=== PATIENT | female | born 2000 | race Caucasian/White ===

== ENCOUNTER 2021-03-23 15:15 | Emergency (ER) | payer BC, MEDICAID ==
[2021-03-23] MEDS ORDERED: Ketorolac 30 MG/ML SDV IVPUSH ONE (15:23)
[2021-03-23] MEDS ORDERED: Ondansetron 4 MG/2 ML SDV IVPUSH ONE (15:23)
[2021-03-23] MEDS ORDERED: Sodium Chloride 0.9% 1,000 ML IV ONE (15:34)
--- NOTE | 2021-03-23 15:40 | EDM.PDOC ---
ED HPI GENERAL MEDICAL PROBLEM - General Chief Complaint: Flank Pain Stated Complaint: right back/flank pain Time Seen by Provider: 03/23/21 15:25 Source of Information: Reports: Patient History Limitations: Reports: No Limitations - History of Present Illness INITIAL COMMENTS - FREE TEXT/NARRATIVE: Patient presents to the ED with her father for three days history of lower back pain, dysuria, nausea and lack of appetite. She states it started off with left lower back pain and dysuria with nausea and loss of appetite. It has progressed to right lower back pain, loss of appetite, dizziness, feeling unwell and one episode of vomiting of stomach secretions today. no fevers, works at the [employer], no known sick contacts. Did have diarrhea a few days ago and no stools s lizett then. Denies any vaginal discharge, taking azotabs for the urine and this is helping. has not taken anything for pain. LMP ended last week, denies any concern for . Non smoker, drinks occasional but not recently. No drug use. No tick bites or bug bites. Not have covid, no vaccines. she states she has had problems concentrating in the last day or so but is not eating or drinking. Still able to function and go to work, no deficits. Onset Date: 03/20/21 Duration: Constant, Getting Worse Location: Reports: Abdomen, Back Severity: Moderate Improves with: Reports: None Worsens with: Reports: Movement Associated Symptoms: Reports: Confusion, Loss of Appetite, Malaise, Nausea/Vomiting, Weakness Treatments TRANSPORTATION ANALYST: Reports: Other (see below) (azo tabs) Right Lower Flank Pain Score (Numeric/FACES): 6 - Related Data Allergies Allergy/AdvReac Type Severity Reaction Status Date / Time No Known Drug Allergies Allergy Other Verified 03/23/21 15:19 Home Meds: Home Meds Nitrofurantoin Monohyd/M-Cryst [Macrobid 100 mg Capsule] 100 mg PO BID 4 Days #8 capsule 03/23/21 [Rx] Ondansetron [Zofran ODT] 4 mg PO Q6H PRN #12 tab.dis 03/23/21 [Rx] Past Medical History Gastrointestinal History: Reports: Chronic Constipation Social & Family History - Family History Family Medical History: No Pertinent Family History - Tobacco Use Tobacco Use Status *Q: Never Tobacco User - Caffeine Use Caffeine Use: Reports: Soda - Alcohol Use Alcohol Use History: Yes Alcohol Use Frequency: Rarely - Recreational Drug Use Recreational Drug Use: No Drug Use in Last 12 Months: No ED ROS GENERAL - Review of Systems Review Of Systems: See Below Constitutional: Reports: Malaise, Weakness, Fatigue. Denies: Fever HEENT: Reports: No Symptoms. Denies: Rhinitis, Sinus Problem, Throat Pain, Throat Swelling Respiratory: Reports: No Symptoms. Denies: Shortness of Breath, Wheezing, Cough Cardiovascular: Reports: No Symptoms. Denies: Chest Pain, Dyspnea on Exertion, Edema Endocrine: Reports: No Symptoms GI/Abdominal: Reports: Abdominal Pain, Anorexia, Diarrhea (several days ago, none in two days), Decreased Appetite, Nausea, Vomiting (once today) : Reports: Dysuria, Flank Pain, Urgency. Denies: Hematuria, Urinary Retention Musculoskeletal: Reports: Back Pain Skin: Reports: No Symptoms Neurological: Reports: Confusion Psychiatric: Reports: No Symptoms Hematologic/Lymphatic: Reports: No Symptoms Immunologic: Reports: No Symptoms ED EXAM, GI/ABD - Physical Exam Exam: See Below Exam Limited By: No Limitations General Appearance: Alert, WD/WN, No Apparent Distress Eyes: Bilateral: Normal Appearance Ears: Normal External Exam, Normal Canal, Hearing Grossly Normal, Normal TMs Nose: Normal Inspection, Normal Mucosa, No Blood Throat/Mouth: Normal Inspection, Normal Lips, Normal Teeth, Normal Gums, Normal Voice Head: Atraumatic Neck: Normal Inspection, Supple, Non-Tender Respiratory/Chest: No Respiratory Distress, Lungs Clear, Normal Breath Sounds, No Accessory Muscle Use, Chest Non-Tender Cardiovascular: Normal Peripheral Pulses, Regular Rate, Rhythm, No Edema, No Murmur GI/Abdominal Exam: Soft, No Organomegaly, Tender (right lower quadrant), Abnormal Bowel Sounds (decreased). No: Rigid, Rebound Back Exam: Normal Inspection, Full Range of Motion, Other (no cva tenderness. No pain to palpation. no lesions or rashes, able to turn over in bed without problems. ) Extremities: Normal Inspection, Normal Range of Motion, No Pedal Edema, Normal Capillary Refill Neurological: Alert, Oriented, CN II-XII Intact, Normal Cognition, Normal Gait Psychiatric: Normal Affect Skin Exam: Warm, Dry, Other (skin is not tenting) Lymphatic: No Adenopathy Course - Vital Signs Last Recorded V/S: Last Vital Signs Temp 36.7 C 03/23/21 16:20 Pulse 67 03/23/21 16:20 Resp 16 03/23/21 16:20 BP 108/62 03/23/21 16:20 Pulse Ox 100 03/23/21 16:20 - Orders/Labs/Meds Orders: Active Orders 24 hr Category Date Time Status Peripheral IV Care [RC] . DIRECTED Care 03/23/21 15:23 Ordered Abdomen Pelvis wo Cont [CT] Stat Exams 03/23/21 16:21 Ordered CULTURE URINE [RM] Stat Lab 03/23/21 16:05 Received Sodium Chloride 0.9% [Saline Flush] Med 03/23/21 15:23 Ordered 10 ml FLUSH ASDIRECTED PRN cefTRIAXone [Rocephin] 1 gm Med 03/23/21 16:32 Ordered Sodium Chloride 0.9% [Normal Saline] 100 ml IV ONETIME Peripheral IV Insertion Adult [OM.PC] Routine Oth 03/23/21 15:23 Ordered Medication Orders Ceftriaxone Sodium 1 gm/ (Sodium Chloride) 100 mls @ 200 mls/hr IV ONETIME ONE Stop: 03/23/21 17:01 Sodium Chloride (Sodium Chloride 0.9% 10 Ml Syringe) 10 ml FLUSH ASDIRECTED PRN PRN Reason: Keep Vein Open Last Admin: 03/23/21 15:53 Dose: 10 ml Documented by: Admin: 03/23/21 15:52 Dose: 10 ml Documented by: JOSS Labs: Laboratory Tests 03/23/21 03/23/21 03/23/21 Range/Units 15:23 15:34 15:34 WBC 8.1 (4.0-10.2) K/uL RBC 4.70 (3.77-5.09) M/uL Hgb 14.0 (11.7-15.5) g/dL Hct 41.0 (34.0-46.0) % MCV 87.2 (84.0-98.0) fL MCH 29.8 (28.2-33.3) pg MCHC 34.1 (31.7-36.0) g/dL RDW 12.3 (11.2-14.1) % Plt Count 327 (150-350) K/uL Neut % (Auto) 61.3 (45.0-80.0) % Lymph % (Auto) 29.7 (10.0-50.0) % Evangeline % (Auto) 7.9 (2.0-14.0) % Eos % (Auto) 0.7 (0.0-5.0) % Baso % (Auto) 0.4 (0.0-2.0) % Neut # (Auto) 4.96 (1.40-7.00) K/uL Lymph # (Auto) 2.40 (0.50-3.50) K/uL Evangeline # (Auto) 0.64 (0.00-1.00) K/uL Eos # (Auto) 0.06 (0.00-0.50) K/uL Baso # (Auto) 0.03 (0.00-0.20) K/uL Sodium 142 (136-145) mmol/L Potassium 3.9 (3.5-5.1) mmol/L Chloride 106 (98-107) mmol/L Carbon Dioxide 26.4 (21.0-32.0) mmol/L Anion Gap 9.6 (7-15) meq/L BUN 10 (7-18) mg/dL Creatinine 0.79 (0.51-1.17) mg/dL Est Cr Clr Drug Dosing TNP Estimated GFR (MDRD) > 60 mL/min Glucose 91 (70-99) mg/dL Lactic Acid (0.4-2.0) mmol/L Calcium 8.9 (8.5-10.1) mg/dL Total Bilirubin 0.4 (0.2-1.0) mg/dL AST 12 L (15-37) U/L ALT 23 (12-78) U/L Alkaline Phosphatase 75 (46-116) IU/L C-Reactive Protein 0.6 (<=0.9) mg/dL Total Protein 6.9 (6.4-8.2) g/dL Albumin 3.8 (3.4-5.0) g/dL Specimen Type Urine Color Urine Appearance Urine pH (5.0-9.0) Ur Specific [place] (1.005-1.030) Urine Protein (NEGATIVE) mg/dL Urine Glucose (UA) (NEGATIVE) mg/dL Urine Ketones (NEGATIVE) mg/dL Urine Occult Blood (NEGATIVE) Urine Nitrite (NEGATIVE) Urine Bilirubin (NEGATIVE) Urine Urobilinogen (0.2-1.0) E.U./dL Ur Leukocyte Esterase (NEGATIVE) Urine RBC /HPF Urine WBC /HPF Ur Epithelial Cells /LPF Urine Bacteria (NONE TO FEW) /HPF Urinalysis Comment Urine HCG, Qual Negative SARS-CoV-2 RNA (AMELIA) (NEGATIVE) 03/23/21 03/23/21 03/23/21 Range/Units 15:34 15:35 16:05 WBC (4.0-10.2) K/uL RBC (3.77-5.09) M/uL Hgb (11.7-15.5) g/dL Hct (34.0-46.0) % MCV (84.0-98.0) fL MCH (28.2-33.3) pg MCHC (31.7-36.0) g/dL RDW (11.2-14.1) % Plt Count (150-350) K/uL Neut % (Auto) (45.0-80.0) % Lymph % (Auto) (10.0-50.0) % Evangeline % (Auto) (2.0-14.0) % Eos % (Auto) (0.0-5.0) % Baso % (Auto) (0.0-2.0) % Neut # (Auto) (1.40-7.00) K/uL Lymph # (Auto) (0.50-3.50) K/uL Evangeline # (Auto) (0.00-1.00) K/uL Eos # (Auto) (0.00-0.50) K/uL Baso # (Auto) (0.00-0.20) K/uL Sodium (136-145) mmol/L Potassium (3.5-5.1) mmol/L Chloride (98-107) mmol/L Carbon Dioxide (21.0-32.0) mmol/L Anion Gap (7-15) meq/L BUN (7-18) mg/dL Creatinine (0.51-1.17) mg/dL Est Cr Clr Drug Dosing Estimated GFR (MDRD) mL/min Glucose (70-99) mg/dL Lactic Acid 0.5 (0.4-2.0) mmol/L Calcium (8.5-10.1) mg/dL Total Bilirubin (0.2-1.0) mg/dL AST (15-37) U/L ALT (12-78) U/L Alkaline Phosphatase (46-116) IU/L C-Reactive Protein (<=0.9) mg/dL Total Protein (6.4-8.2) g/dL Albumin (3.4-5.0) g/dL Specimen Type Urincc Urine Color Yellow Urine Appearance Slightly cloudy Urine pH 7.0 (5.0-9.0) Ur Specific [place] 1.020 (1.005-1.030) Urine Protein Trace H (NEGATIVE) mg/dL Urine Glucose (UA) Negative (NEGATIVE) mg/dL Urine Ketones Negative (NEGATIVE) mg/dL Urine Occult Blood Moderate H (NEGATIVE) Urine Nitrite Negative (NEGATIVE) Urine Bilirubin Negative (NEGATIVE) Urine Urobilinogen 0.2 (0.2-1.0) E.U./dL Ur Leukocyte Esterase Small H (NEGATIVE) Urine RBC 5-10 H /HPF Urine WBC 10-20 H /HPF Ur Epithelial Cells Moderate H /LPF Urine Bacteria Moderate H (NONE TO FEW) /HPF Urinalysis Comment Urine HCG, Qual SARS-CoV-2 RNA (AMELIA) Negative (NEGATIVE) Meds: Medications Generic Name Dose Route Start Last Admin Trade Name Freq PRN Reason Stop Dose Admin Ceftriaxone Sodium 1 gm/ 100 mls @ 200 mls/hr 03/23/21 16:32 Sodium Chloride IV 03/23/21 17:01 ONETIME ONE Sodium Chloride 10 ml 03/23/21 15:23 03/23/21 15:53 Sodium Chloride 0.9% 10 Ml Syringe FLUSH 10 ml ASDIRECTED PRN Administration Keep Vein Open Discontinued Medications Generic Name Dose Route Start Last Admin Trade Name Freq PRN Reason Stop Dose Admin Sodium Chloride 1,000 mls @ 999 mls/hr 03/23/21 15:34 03/23/21 15:51 Normal Saline IV 03/23/21 16:34 999 mls/hr .BOLUS ONE Administration Ketorolac Tromethamine 30 mg 03/23/21 15:23 03/23/21 15:51 Ketorolac 30 Mg/Ml Sdv IVPUSH 03/23/21 15:24 30 mg ONETIME ONE Administration Ondansetron HCl 4 mg 03/23/21 15:23 03/23/21 15:52 Ondansetron 4 Mg/2 Ml Sdv IVPUSH 03/23/21 15:24 4 mg ONETIME ONE Administration - Radiology Interpretation Free Text/Narrative:: ct scan without any acute findings. no renal stone or signs of infection. see official report - Re-Assessments/Exams Free Text/Narrative Re-Assessment/Exam: 03/23/21 15:44 VSS, will place an IV, give iv fluids due to lack of appetite and vomiting, give toradol, zofran and will check labs, urine, and covid. 03/23/21 16:12 Labs were normal,. pain is better, able to give a urine. Awaiting covid results 03/23/21 16:31 have bacteria and blood in the urine. Will get a ct scan to rule out obstructing stone. Will treat the UTI with rocephin. normal lactic and CRP. 03/23/21 17:06 discussed with patient plan for outpatient antibiotics, hydration, and urine culture pending. Will start macrobid, give zofran and advise miralax to prevent constipation Departure - Departure Time of Disposition: 17:07 Disposition: Home, Self-Care 01 Condition: Good Clinical Impression: Back pain, Nausea and vomiting, UTI (urinary tract infection), Hematuria - Discharge Information *PRESCRIPTION DRUG MONITORING PROGRAM REVIEWED*: Not Applicable *COPY OF PRESCRIPTION DRUG MONITORING REPORT IN PATIENT KORTNEY: Not Applicable Prescriptions: Nitrofurantoin Monohyd/M-Cryst [Macrobid 100 mg Capsule] 100 mg PO BID 4 Days #8 capsule Ondansetron [Zofran ODT] 4 mg PO Q6H PRN #12 tab.dis PRN Reason: Nausea Instructions: Nausea and Vomiting, Adult, [id number], Urinary Tract Infection, Adult, [id number] Referrals: Margarita Purcell MD [Primary Care Provider] - Forms: ED Department Discharge Additional Instructions: Labs today were normal in regards to liver function, kidney function, electrolytes and negative for signs of infection. Covid test was negative. Urine revealed bacteria and blood. Ct scan was done to look for kidney stone versus just infection. No stones or other intra abdominal process. You were given Rocephin 1 gram IV and need to continue antibiotics for the next 4 days. Urine culture is pending and you will be contacted as to needs for changes in medication if needed. Use the nausea medication to help allow you to stay hydrated. Slowly advance diet as tolerated. it is a good idea to take an oral probiotic tablet while taking antibiotics. You can pick this up over the counter. Medications can cause constipation. Take one capful of miralax in 8 ounces of water daily to prevent this Follow up with PCP if not improving Sepsis Event Note (ED) - Focused Exam Vital Signs: Vital Signs Temp Pulse Resp BP Pulse Ox 03/23/21 16:20 36.7 C 67 16 108/62 100 - My Orders Last 24 Hours: My Active Orders 03/23/21 15:23 Peripheral IV Care [RC] . DIRECTED Sodium Chloride 0.9% [Saline Flush] 10 ml FLUSH ASDIRECTED PRN Peripheral IV Insertion Adult [OM.PC] Routine 03/23/21 16:05 CULTURE URINE [RM] Stat 03/23/21 16:21 Abdomen Pelvis wo Cont [CT] Stat 03/23/21 16:32 cefTRIAXone [Rocephin] 1 gm Sodium Chloride 0.9% [Normal Saline] 100 ml IV ONETIME - Assessment/Plan Last 24 Hours: My Active Orders 03/23/21 15:23 Peripheral IV Care [RC] . DIRECTED Sodium Chloride 0.9% [Saline Flush] 10 ml FLUSH ASDIRECTED PRN Peripheral IV Insertion Adult [OM.PC] Routine 03/23/21 16:05 CULTURE URINE [RM] Stat 03/23/21 16:21 Abdomen Pelvis wo Cont [CT] Stat 03/23/21 16:32 cefTRIAXone [Rocephin] 1 gm Sodium Chloride 0.9% [Normal Saline] 100 ml IV ONETIME
[2021-03-23] MEDS: Sodium Chloride 0.9% 10 ML Syringe FLUSH PRN ×2 (15:52→15:53)
[2021-03-23 15:54] LABS: ANION GAP 9.6 meq/L (7-15); CHLORIDE,CL 106 mmol/L (98-107); SODIUM,NA 142 mmol/L (136-145)
[2021-03-23] MEDS ORDERED: cefTRIAXone 1 GM in Sodium Chloride 0.9% 100 ML IV ONE (16:32)
--- NOTE | 2021-03-25 10:02 | PCM.SN.2 ---
- Free Text/Narrative Note: Culture grew E Coli. Sensitivity not performed against Macrobid which was what patient was prescribed. Is sensitive to the Rocephin she received while in ED. Patient contacted this morning and says she is feeling better. Back pain gone. We discussed results. It was recommended that we either change antibiotics to one listed as effective on the C&S, or have her follow up for UA recheck at clinic to make certain the UTI was responding appropriately to the Macrobid. Patient chooses to follow up with her PCP at [place] for UA recheck. Also offered to have her come to [place] to have lab performed as outpatient but again she prefers to follow up at [facility]. Time Documentation
== END 2021-03-23 17:30 | disposition home or self-care (01) ==
LOC: LL.ED 15:15
DX: N39.0 Urinary tract infection, site not specified (principal); R31.9 Hematuria, unspecified; R11.2 Nausea with vomiting, unspecified; Z20.822 Contact with and (suspected) exposure to COVID-19
CPT/HCPCS: 36415; 74176; 80053; 81001; 81025; 83605; 85025; 86140; 87086; 87186; 87635; 96374; 96375; 99284; J0696; J1885; J2405; J7030; U0002

== ENCOUNTER 2022-04-19 12:36 | Emergency (ER) | payer BC ==
[2022-04-19 13:38] LABS: ANION GAP 5.7 meq/L (7-15); CHLORIDE,CL 104 mmol/L (98-107); SODIUM,NA 138 mmol/L (136-145)
[2022-04-19 13:40] LABS: ESTIMATED GFR 103 mL/min (>=60)
== END 2022-04-19 14:00 | disposition home or self-care (01) ==
LOC: LL.ED 12:36
DX: M54.50 Low back pain, unspecified (principal); M54.6 Pain in thoracic spine; M25.511 Pain in right shoulder; M25.512 Pain in left shoulder; T36.8X5A Adverse effect of other systemic antibiotics, initial encounter
CPT/HCPCS: 36415; 80053; 81003; 85025; 99283